=== PATIENT | male | born 1955 | race Caucasian/White ===

== ENCOUNTER 2022-06-06 23:44 | Emergency (ER) | payer SELFPAY ==
[~2022-06-06] VITALS: Ht 170.2 cm; Wt 77.0 kg
[2022-06-07 05:30] VITALS: BP 136/92
== END 2022-06-07 05:40 | disposition home or self-care (01) ==
LOC: ER 23:44
DX: F10.229 Alcohol dependence with intoxication, unspecified (principal); Y90.0 Blood alcohol level of less than 20 mg/100 ml
CPT/HCPCS: 99283

== ENCOUNTER 2023-11-27 18:53 | Inpatient (IN) | payer MEDICARE, OTHER ==
[~2023-11-27] VITALS: Ht 170.2 cm; Wt 64.8 kg
[2023-11-27 20:12] LABS: BASOPHILS % 0.8 % (0.0-2.0); EOSINOPHILS % 1.3 % (0.0-5.0); HEMATOCRIT. 35.9 % (42.0-52.0); HEMOGLOBIN. 11.9 g/dL (14.0-18.0); LYMPHOCYTES % 16.3 % (20.0-50.0); MEAN CORPUSCULAR HEMOGLOBIN 30.7 pg (28.0-32.0); MEAN CORPUSCULAR HGB CONC 33.2 g/dL (31.0-37.0); MEAN CORPUSCULAR VOLUME 92.4 fL (80.0-94.0); MEAN PLATELET VOLUME 6.3 fl (7.4-10.4); MONOCYTES % 9.8 % (2.0-8.0); NEUTROPHILS % 71.8 % (40.0-76.0); PLATELET 453 x1000/uL (130-400); RED BLOOD CELL COUNT 3.89 mill/uL (4.7-6.1); RED CELL DISTRIBUTION WIDTH 16.5 % (11.6-14.6); WHITE BLOOD COUNT 10.5 x1000/uL (4.5-11.0)
[2023-11-27 20:23] LABS: D-DIMER 1.27 mg/L FEU (<0.50); PROTHROMBIN TIME 10.7 sec (9.6-11.0)
[2023-11-27 20:26] LABS: ALANINE AMINOTRANSFERASE 13 IU/L (10-49); ALBUMIN 4.1 g/dL (3.2-4.8); ASPARTATE AMINOTRANSFERASE 17 IU/L (<34); BILIRUBIN TOTAL 0.2 mg/dL (0.1-1.0); CALCIUM 9.8 mg/dL (8.7-10.4); CARBON DIOXIDE 30 mEq/L (21-32); CHLORIDE 100 mEq/L (98-107); CREATININE 0.5 mg/dL (0.6-1.3); GLUCOSE 130 mg/dL (70-105); POTASSIUM 4.6 mEq/L (3.5-5.1); PROTEIN TOTAL 6.8 g/dL (6.0-8.3); SODIUM 133 mEq/L (136-145); UREA NITROGEN BLOOD 11 mg/dL (9-23)
[2023-11-27 20:32] LABS: TROPONIN I HIGH SENSITIVITY < 4 ng/L (3.0-53)
[2023-11-27] MEDS ORDERED: LABETALOL HCL VIAL 20 MG/4 ML VIAL IV ONE (21:00)
[2023-11-27 22:16] LABS: TROPONIN I HIGH SENSITIVITY < 4 ng/L (3.0-53)
[2023-11-27] MEDS: ASPIRIN 325MG EC TABLET PO ONE (22:26)
[2023-11-27 22:34] LABS: BG CARBOXYHEMOGLOBIN 2.4 % (0.5-1.5); BG DEOXYHEMOGLOBIN 2.7 % (0.0-5.0); BG FRACTION INSPIRED OXYGEN 32; BG OXYGEN SATURATION 97.2 % (92.0-98.5); BG OXYHEMOGLOBIN 94.9 % (94.0-97.0); BG PCO2 33.9 mmHg (35.0-45.0); BG PH 7.486 (7.350-7.450); BG PO2 91.5 mmHg (75.0-100.0); BG SAMPLE SITE LEFT RADIAL; BG TOTAL HEMOGLOBIN 12.1 g/dL (12.0-18.0); BG VENT MODE NASAL CANNULA
[2023-11-27] MEDS: LABETALOL 5MG/ML SYR 20 MG/4 ML SYRINGE IV NR (22:48)
[2023-11-28] VITALS (7 sets, daily range): BP systolic 86–144; BP diastolic 51–73; PULSE 68–83; RESP 18–20; TEMP 97.1–98.2
[2023-11-28] MEDS: LORAZEPAM 2MG/ML INJ IV ONE (00:14)
[2023-11-28] MEDS ORDERED: CLONIDINE 0.1MG TABLET PO PRN (00:30)
[2023-11-28] MEDS ORDERED: ONDANSETRON HCL 4MG/2ML INJ IV PRN (00:30)
[2023-11-28] MEDS ORDERED: MAGNESIUM/ALUMINUM HYDROXIDE/SIMETHICONE 30ML UDC PO PRN (00:30)
[2023-11-28] MEDS ORDERED: IPRATROPIUM/ALBUTEROL 0.5-3(2.5)MG/3ML NEB HHN PRN (00:30)
[2023-11-28] MEDS ORDERED: ZOLPIDEM TARTRATE 5MG TABLET PO PRN (00:30)
[2023-11-28] MEDS ORDERED: ACETAMINOPHEN 325MG TABLET PO PRN (00:30)
[2023-11-28] MEDS ORDERED: GUAIFENESIN 200MG/10ML SUGAR FREE UDC PO PRN (00:30)
[2023-11-28] MEDS ORDERED: DIPHENHYDRAMINE 50MG/ML VIAL IV PRN (00:30)
[2023-11-28] MEDS ORDERED: IOHEXOL-350 100 ML BOTTLE ONE (00:48)
[2023-11-28] MEDS: PANTOPRAZOLE SODIUM 40 MG/VIAL IV SCH (03:53)
[2023-11-28] MEDS: CHLORDIAZEPOXIDE 25MG CAPSULE PO SCH ×2 (05:50→21:03)
[2023-11-28] MEDS: SODIUM CHLORIDE 0.9% INJ 3ML FLUSH IVF SCH (05:54)
[2023-11-28] MEDS: MVI, ADULT NO.1 10 ML, FOLIC ACID 1 MG, THIAMINE HCL 100 MG in SODIUM CHLORIDE 0.9% 1,0... IV SCH (05:55)
[2023-11-28] MEDS: IPRATROPIUM/ALBUTEROL 0.5-3(2.5)MG/3ML NEB HHN SCH (09:20)
[2023-11-28 10:18] LABS: BASOPHILS % 0.5 % (0.0-2.0); EOSINOPHILS % 2.2 % (0.0-5.0); HEMATOCRIT. 33.7 % (42.0-52.0); HEMOGLOBIN. 10.8 g/dL (14.0-18.0); LYMPHOCYTES % 21.4 % (20.0-50.0); MEAN CORPUSCULAR HEMOGLOBIN 29.8 pg (28.0-32.0); MEAN CORPUSCULAR HGB CONC 32.2 g/dL (31.0-37.0); MEAN CORPUSCULAR VOLUME 92.5 fL (80.0-94.0); MEAN PLATELET VOLUME 6.6 fl (7.4-10.4); MONOCYTES % 8.8 % (2.0-8.0); NEUTROPHILS % 67.1 % (40.0-76.0); PLATELET 413 x1000/uL (130-400); RED BLOOD CELL COUNT 3.64 mill/uL (4.7-6.1); RED CELL DISTRIBUTION WIDTH 16.6 % (11.6-14.6); WHITE BLOOD COUNT 6.6 x1000/uL (4.5-11.0)
[2023-11-28 10:27] LABS: CALCIUM 8.5 mg/dL (8.7-10.4); CARBON DIOXIDE 23 mEq/L (21-32); CHLORIDE 101 mEq/L (98-107); CREATININE 0.6 mg/dL (0.6-1.3); GLUCOSE 217 mg/dL (70-105); PHOSPHORUS 2.6 mg/dL (2.5-4.9); POTASSIUM 3.1 mEq/L (3.5-5.1); SODIUM 132 mEq/L (136-145); UREA NITROGEN BLOOD 7 mg/dL (9-23)
[2023-11-28] MEDS: MAGNESIUM 4 G PREMIX 100 ML IV NR (20:52)
[2023-11-28] MEDS: POTASSIUM CHLORIDE 20MEQ TABLET SR PO NR (21:01)
[2023-11-29] VITALS (8 sets, daily range): BP systolic 109–125; BP diastolic 59–75; PULSE 65–89; RESP 13–24; TEMP 97.2–99.1
[2023-11-29 07:23] LABS: BASOPHILS % 0.8 % (0.0-2.0); EOSINOPHILS % 2.4 % (0.0-5.0); HEMATOCRIT. 34.6 % (42.0-52.0); HEMOGLOBIN. 11.5 g/dL (14.0-18.0); LYMPHOCYTES % 21.1 % (20.0-50.0); MEAN CORPUSCULAR HEMOGLOBIN 31.1 pg (28.0-32.0); MEAN CORPUSCULAR HGB CONC 33.2 g/dL (31.0-37.0); MEAN CORPUSCULAR VOLUME 93.8 fL (80.0-94.0); MEAN PLATELET VOLUME 6.9 fl (7.4-10.4); MONOCYTES % 10.7 % (2.0-8.0); PLATELET 437 x1000/uL (130-400); RED CELL DISTRIBUTION WIDTH 16.5 % (11.6-14.6); WHITE BLOOD COUNT 7.1 x1000/uL (4.5-11.0)
[2023-11-29 07:45] LABS: CALCIUM 8.4 mg/dL (8.7-10.4); CARBON DIOXIDE 26 mEq/L (21-32); CHLORIDE 106 mEq/L (98-107); CREATININE 0.5 mg/dL (0.6-1.3); GLUCOSE 115 mg/dL (70-105); PHOSPHORUS 2.4 mg/dL (2.5-4.9); POTASSIUM 4.3 mEq/L (3.5-5.1); SODIUM 135 mEq/L (136-145); UREA NITROGEN BLOOD 7 mg/dL (9-23)
[2023-11-29] MEDS: ACETAMINOPHEN 325MG TABLET PO PRN (14:57)
[2023-11-29] MEDS: SUCRALFATE 1G TABLET PO SCH (18:12)
[2023-11-30] VITALS (7 sets, daily range): BP systolic 110–125; BP diastolic 60–73; PULSE 66–86; RESP 18–25; TEMP 97–98; O2SAT 96
[2023-11-30 06:39] LABS: BASOPHILS % 0.7 % (0.0-2.0); EOSINOPHILS % 2.1 % (0.0-5.0); HEMATOCRIT. 34.7 % (42.0-52.0); HEMOGLOBIN. 11.9 g/dL (14.0-18.0); LYMPHOCYTES % 16.3 % (20.0-50.0); MEAN CORPUSCULAR HGB CONC 34.2 g/dL (31.0-37.0); MEAN CORPUSCULAR VOLUME 90.5 fL (80.0-94.0); MEAN PLATELET VOLUME 6.6 fl (7.4-10.4); MONOCYTES % 9.4 % (2.0-8.0); NEUTROPHILS % 71.5 % (40.0-76.0); PLATELET 439 x1000/uL (130-400); RED BLOOD CELL COUNT 3.83 mill/uL (4.7-6.1); RED CELL DISTRIBUTION WIDTH 16.3 % (11.6-14.6)
[2023-11-30 06:45] LABS: CARBON DIOXIDE 25 mEq/L (21-32); CHLORIDE 103 mEq/L (98-107); CREATININE 0.5 mg/dL (0.6-1.3); GLUCOSE 111 mg/dL (70-105); POTASSIUM 4.3 mEq/L (3.5-5.1); SODIUM 135 mEq/L (136-145); UREA NITROGEN BLOOD 10 mg/dL (9-23)
[2023-11-30] MEDS: IBUPROFEN 600MG TABLET PO PRN (19:39)
[2023-12-01 00:30] VITALS: PULSE 21; RESP 18; O2SAT 98
[2023-12-01 08:00] VITALS: BP 107/66; PULSE 82; RESP 20; TEMP 97.8
[2023-12-01 12:00] VITALS: BP_SYST 111; BP_SYST 151; BP_DIAS 68; BP_DIAS 69; PULSE 81; PULSE 83; RESP 18; TEMP 97.5
[2023-12-01 15:33] VITALS: PULSE 86; RESP 16; O2SAT 97
[2023-12-01 16:00] VITALS: BP_SYST 109; BP_SYST 141; BP_DIAS 55; BP_DIAS 63; PULSE 91; RESP 18; TEMP 97.7
[2023-12-01 20:00] VITALS: BP 114/65; PULSE 84; RESP 19; TEMP 97.9
[2023-12-02] VITALS (9 sets, daily range): BP systolic 107–119; BP diastolic 66–74; PULSE 74–89; RESP 17–19; TEMP 97.3–99.3; O2SAT 96
[2023-12-02] MEDS ORDERED: ONDANSETRON 4MG ODT PO PRN (15:24)
[2023-12-03 08:00] VITALS: BP 111/72; PULSE 90; RESP 20; TEMP 98.6
[2023-12-03 12:00] VITALS: BP 113/76; PULSE 90; RESP 18; TEMP 98.7
[2023-12-03 16:36] VITALS: BP 126/73; PULSE 74; RESP 16; TEMP 97.8
== END 2023-12-03 16:00 | DRG 192 ==
LOC: ER 18:53 → 7EST 21:36 → EDBEDREQ 21:40 → EDBEDREQTM 21:40
PROVIDERS: ADMIT Internal Medicine; ATTEND Internal Medicine
DX: J44.1 Chronic obstructive pulmonary disease with (acute) exacerbation (principal); F41.1 Generalized anxiety disorder; I10 Essential (primary) hypertension; D64.9 Anemia, unspecified; Z20.822 Contact with and (suspected) exposure to COVID-19; G89.29 Other chronic pain; F10.20 Alcohol dependence, uncomplicated; M47.9 Spondylosis, unspecified; F17.210 Nicotine dependence, cigarettes, uncomplicated; R13.10 Dysphagia, unspecified; Z87.11 Personal history of peptic ulcer disease; Y90.9 Presence of alcohol in blood, level not specified
CPT/HCPCS: 36415; 36600; 71045; 71275; 76700; 80048; 80053; 82375; 82805; 83036; 83605; 83735; 83880; 84100; 84484; 85025; 85379; 87426; 87804; 93005; 94640; 97162; 99285; C1893; C9113; J2060; J3411; J3475; J3490; J7030; Q9967